=== PATIENT | female | born 1985 | race Caucasian/White ===

== ENCOUNTER 2016-10-28 13:34 | Inpatient (IN) | payer BC ==
[~2016-10-28] VITALS: Ht 172.7 cm; Wt 76.4 kg
[~2016-10-28 13:34] MED LIST: IRON325 MG PO; MOTRIN 600600 MG/TAB PO; PRENATAL1 TA5 PO
[2016-12-24] VITALS (32 sets, daily range): BP systolic 108–143; BP diastolic 56–91; PULSE 54–100; TEMP 97.6–98.2
[2016-12-24] MEDS ORDERED: PRENATAL MVI (07:57)
[2016-12-24 08:03] LABS: HEMOGLOBIN 12.5 g/dl (12.5-16.0); MEAN CELL VOLUME 93 fl (80.0-100.0); MEAN CORPUSCULAR HEMOGLOBIN 32 pg (27.0-31.0); MEAN CORPUSCULAR HGB CONC 34 g/dl (33.0-37.0); MEAN PLATELET VOLUME 12.4 fl (7.4-10.4); PLATELET COUNT 139 K/mm3 (130-400); RED BLOOD COUNT 3.91 M/mm3 (4.10-5.30); REDCELL DISTRIBUTION WIDTH-CV 13.1 % (11.5-14.5); WHITE BLOOD COUNT 7.1 K/mm3 (4.8-10.8)
[2016-12-24 08:04] LABS: ADD PATHOLOGY DIFF REVIEW NO; HEMATOCRIT 36.4 % (37.0-47.0)
[2016-12-24] MEDS ORDERED: FERRO-TIME325 MG PO (08:29)
[2016-12-24 09:39] LABS: BAND 11 % (0-10); METAMYELOCYTE 2 % (0-0); MYELOCYTE 4 % (0-0); NEUTROPHILS 55 % (42.0-75.2); PLATELET ESTIMATE NORMAL (NORMAL); TOTAL CELLS COUNTED 100
[2016-12-25] MEDS ORDERED: IBU600 MG PO (08:46)
[2016-12-25] MEDS ORDERED: PERCOCET 325 MG1 TA2 PO (08:46)
[2016-12-25 15:33] VITALS: BP 114/71; PULSE 72; TEMP 97.3
[2016-12-25 20:29] VITALS: BP 106/60; PULSE 84; TEMP 97.5
[2016-12-26 07:00] VITALS: BP 112/68; PULSE 68; TEMP 98.1
== END 2016-12-26 10:30 | disposition home or self-care (01) | DRG 775 ==
LOC: LDR 12-16 07:00 → EDSTATUS 12-21 06:59 → LDRO 12-21 13:34 → LDR 12-24 07:12 → OB 12-24 07:19
PROVIDERS: Obstetrics & Gynecology
PROC: 10E0XZZ Delivery of Products of Conception, External Approach (ICD-10-PCS; principal; 2016-12-24)
PROC: 0KQM0ZZ Repair Perineum Muscle, Open Approach (ICD-10-PCS; 2016-12-24)
PROC: 3E033VJ Introduction of Other Hormone into Peripheral Vein, Percutaneous Approach (ICD-10-PCS; 2016-12-24)
DX: O48.0 Post-term pregnancy (principal); O70.1 Second degree perineal laceration during delivery; O99.02 Anemia complicating childbirth; D64.9 Anemia, unspecified; Z3A.40 40 weeks gestation of pregnancy; Z37.0 Single live birth
CPT/HCPCS: J2590; J3010; J7120